=== PATIENT | male | born 1990 | race Caucasian/White ===

== ENCOUNTER 2020-02-06 10:23 | Outpatient (REF) | payer BC, SELFPAY | END 2020-02-06 10:24 | disposition home or self-care (01) | LOC: HO.LAB 10:23 | PROVIDERS: PCP Family Medicine; Visit Provider Internal Medicine | DX: Z20.828 Contact with and (suspected) exposure to other viral communicable diseases (principal) | CPT/HCPCS: C9803; U0003 ==

== ENCOUNTER 2020-02-11 10:06 | Outpatient (REF) | payer BC, SELFPAY | END 2020-02-11 10:07 | disposition home or self-care (01) | LOC: HO.LAB 10:06 | PROVIDERS: PCP Pediatrics; Visit Provider Internal Medicine | DX: Z20.828 Contact with and (suspected) exposure to other viral communicable diseases (principal) | CPT/HCPCS: C9803; U0003 ==

== ENCOUNTER 2021-03-09 01:36 | Emergency (ER) | payer OTHER, SELFPAY ==
[2021-03-09 01:39] VITALS: BP 129/79; PULSE 99; RESP 16; TEMP 36.9; O2SAT 98; BMI 25.8
--- NOTE | 2021-03-09 02:09 | ED.EAR ---
HPI - Ear Problem General Chief complaint: Ear Problems Stated complaint: ear infection? Time Seen by Provider: 03/09/21 02:08 Source: patient Mode of arrival: ambulatory History of Present Illness HPI Narrative: 30-year-old male without significant past medical history, denies history of diabetes and states that he has been having pain in his right ear for approximately 1 week with some noted discharge and had attempted multiple washes with a mixture of hydrogen peroxide. 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 He otherwise denies any difficulty breathing, swallowing, fevers, chills, dental pain. Related Data Previous Rx's Medication Instructions Recorded ofloxacin 0.3 % ear drops 5 drp OTIC (EAR) RIGHT BID 7 Days 03/09/21 #5 ml Allergies Allergy/AdvReac Type Severity Reaction Status Date / Time No Known Allergies Allergy Verified 03/09/21 01:42 [No Known Allergies*] Review of Systems Review of Systems: Pertinent positives and negatives as stated in HPI 10 point review of systems is otherwise negative. PMFSH Past Medical History Source: nursing notes reviewed Medical History Multiple sclerosis Social History Social History Advance Directives: No Physical Exam Vital Signs: Vital Signs: Last Vital Signs Temp 98.4 F 03/09/21 01:39 Pulse 99 03/09/21 01:39 Resp 16 03/09/21 01:39 BP 129/79 03/09/21 01:39 Pulse Ox 98 03/09/21 01:39 BMI result Body Mass Index 25.8 VITAL SIGNS: Reviewed. GENERAL: Well developed, well nourished, in no acute distress. HEAD: Normocephalic/atraumatic EYES: PERRLA, EOMI EARS: Right Ext canals with noted debris, erythema, inflammation but bilateral TMs non-bulging and non-erythematous NOSE: Nares patent bilateral OROPHARYNX: no oral lesions noted, posterior pharynx clear LUNGS: Normal breath sounds. No adventitious sounds or accessory muscle use. SpO2<98> CARDIOVASCULAR: Regular rate and rhythm without noted murmurs ABDOMEN: Soft, non-tender, non-distended with bowel sounds. NEUROLOGIC: Alert and oriented x 4. Course Course Course Narrative: 30-year-old male with history and clinical presentation consistent with otitis externa and no evidence to suggest TM rupture and posterior pharynx within normal limits and no evidence of dental caries. Patient was provided with a script for treatment of his otitis externa and discharged home in stable condition. Discharge Plan Discharge Clinical Impression: Otitis externa Patient Disposition: Home, Self-Care Instructions: Otitis Externa (ED) Additional Instructions: 1. Complete the entire course of antibiotics 2. Recommend [id number] Tylenol/ibuprofen as needed for pain control. Return to the ER for worsening symptoms. Prescriptions: New ofloxacin 0.3 % drops 5 drp otic (ear) right BID 7 Days Qty: 5 RF: 0 Interventions: ED Discharge Assessment Last Done: 03/09/21 02:21 Discharge Date/Time: 03/09/21 02:22
== END 2021-03-09 02:22 | disposition home or self-care (01) ==
PROVIDERS: Emergency Provider Student in an Organized Health Care Education/Training Program
DX: H60.91 Unspecified otitis externa, right ear (principal)
CPT/HCPCS: 99283